=== PATIENT | female | born 1980 | race American Indian/Alaskan Native ===

== ENCOUNTER 2020-03-29 19:18 | Emergency (ER) | payer SELFPAY ==
[2020-03-29 19:26] VITALS: BP 114/67
[2020-03-29 20:17] LABS: HCG Qualitative,Urine Negative (Negative)
== END 2020-03-29 21:00 | disposition left against medical advice (07) ==
LOC: ED 19:18
DX: Z53.21 Procedure and treatment not carried out due to patient leaving prior to being seen by health care provider (principal)
CPT/HCPCS: 81025